=== PATIENT | male | born 1975 | race Caucasian/White ===

== ENCOUNTER 2025-06-03 18:38 | Emergency (ER) | payer OTHER, SELFPAY ==
--- OUTSIDE RECORDS SUMMARY | 2023-04-15 05:15 | XMS_ITS | Continuity of Care Document ---
Author Organization [facility] Address [address] [place] [address] Phone Care Team Providers Care Electromatic Typist Name Role Phone Jamar Hi DMD Unavailable Unavailable Allergies, Adverse Reactions, Alerts Substance Reaction Status Criticality No Known Allergies Active No Inform ation Medications Medication Instructions Dosage Effective Dates (start - stop) Status Comments ibuprofen 800 mg tablet take 1 tablet by oral route 3 times every day with food as needed 800 MG - Active Procedures Procedure Date Intraoral-periapical 1st Film Bitewig-single Film Limited Oral Eval Extract; Erupted Th/exposted R[address] Advance Directives Directive Yes / No Effective Date File Name No Information Encounters Encounter Description Practice Location Reason(s) For Visit Diagnoses Date Provider Providers Copied on Encounter [facility], [address] [place] [address], [id number], tel:[phone] Dental Clinic dental em (chief complaint) Encounter for screening for dental disorders Sussy Roldan. [address], [place], [id number], [place]. tel:[phone] Family History Family Member Type Diagnosis Age At Onset No Information Payers Payer name Insurance type Covered libertarian ID Authorleoa titheresa(s) D [employer] [facility] [id number] D Medicaid [facility] [id number] Social History Type Description Quantity Date Captured Comments Alcohol Use Details Unknown Caffeine Use Details Unknown Tobacco Use Status No Information Smoking Status No Information May-25-2023 Sex Male Sexual Orientation Straight or heterosexual Gender Identity Male Vital Signs Date / Time: Height Weight BMI Pulse Rate Blood Pressure Temperature Respiratory Rate Body Surface Area Head Circumference Head Circ. Percentile Wt./Anders. Percentile BMI percentile Pulse Ox Inhaled Ox 9:50 AM 71 /min 138/92 mm[Hg] 98.00 F Chief Complaint And Reason For Visit From encounter dated '04/15/2023 09:15'. dental em (chief complaint). Description: dental em Reason For Referral Reason For Referral No Information Plan Of Treatment Date Type Action Status Goal Influenza vaccine. Due on due Goal Lipid panel. Due on due Goal PRAPARE ASSESSMENT. Due on due Goal Tdap Vaccine. Due on 2022 due Goal Depression screening. Due on due Goal Tdap. Due on due History Of Present Illness Encounter Date Complaint History Of Prese nt Illness dental em dental em Functional Status Date Functional Assessmen t No Information Instructions Date Instruction Additional Infor mation No Information Assessments Type Assessment Date No Information Patient Care Teams Name Effective Dates (start - stop) Status Members No Information
[2025-06-03 19:02] VITALS: BP 129/82; PULSE 98; TEMP 36.8; O2SAT 98; BMI 29.8
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
--- OUTSIDE RECORDS SUMMARY | 2025-06-03 19:32 | XMS_ITS | Clinical Summary ---
Author Organization [facility] Healthcare Address [address] [place] [address] Care Team Providers Care Salon Supervisor Name Role Phone Unavailable Primary Care Provider Unavailabl e Allergies Active Allergy Reactions Criticality Noted Date Comments Sumatriptan Unknown 04/09/2025 Medications tiZANidine (Zanaflex) 4 MG tablet Take 1 tablet by mouth at bedtime Active tamsulosin (Flomax) 0.4 MG 24 hr capsule Take 1 capsule by mouth Daily Active oxyMORphone ER (Opana) 20 MG 12 hr tablet Take 1 tablet by mouth every 12 (twelve) hours Active metoprolol succinate XL (Toprol-XL) 25 MG 24 hr tablet Take 1 tablet by mouth Daily Active Family History Relation Name Status Comments Daughter x 3 Alive Father Alive Mother Son x 2 Alive Social History Tobacco Use Types Packs/Day Years Used Date Smoking Tobacco: Every Day Cigarettes Tobacco Cessation:Ready to Q uit: Not Asked; Counseling Given: Not Answered Alcohol Use Standard Drinks/Week Comments Yes 0 (1 standard drink = 0.6 oz pur e alcohol) Sex and Gender Information Value Date Recorded Sex Assigned at Not on file Legal Sex Male 6:36 PM EDT Gender Identity Not on file Sexual Orientation Not on file Last Filed Vital Signs Vital Sign Reading Time Taken Comments Blood Pressure 120/78 06/17/2018 12:00 PM EDT Pulse 79 03/01/2018 9:48 AM EDT Temperature - - Respiratory Rate 18 03/01/2018 9:48 AM EDT Oxygen Saturation 94% 03/01/2018 9:48 AM EDT Inhaled Oxygen Concentration - - Weight 81.9 kg (180 lb 9.6 oz) 06/17/2018 12:00 PM EDT Height 188 cm (6' 2 ) 06/17/2018 12:00 PM EDT Body Mass Index 23.19 06/17/2018 12:00 PM EDT Plan of Treatment Not on file
[2025-06-03 19:42] LABS: SARS-CoV-2 Ag NEGATIVE (NEGATIVE)
--- NOTE | 2025-06-03 20:02 | ED.GENADUL1 ---
HPI HPI - General Adult General Chief complaint: Upper Respiratory Infection Stated complaint: NOT FEELING WELL Time Seen by Provider: 06/03/25 19:38 Source: patient Mode of arrival: walk-in Limitations: no limitations History of Present Illness HPI narrative: The patient is a 49-year-old male who presents to the emergency department today for evaluation concerns for cough/cold symptoms. Endorses the symptoms began yesterday and states he took some Tylenol with no relief in symptoms so proceeded to the ER today. Denies any fevers. No headache or ear pain. He does endorse a mild sore throat. No chest pain or shortness of breath. No abdominal pain or nausea/vomiting/diarrhea. Related Data Home Medications ?Medication ?Instructions ?Recorded ?Confirmed No Known Home Medications 06/03/25 06/03/25 Allergies Allergy/AdvReac Type Severity Reaction Status Date / Time sumatriptan (From Imitrex) Allergy Severe Anaphylaxis Verified 06/03/25 19:05 Review of Systems ROS Status of ROS 10 or more systems reviewed and unremarkable except as noted in history and below PFSH PFSH Social History Little interest or pleasure in doing things: not at all Feeling down, depressed, or hopeless: not at all Exam Narrative Exam Narrative: Constituational: Awake/ alert, no apparent distress, well hydrated HENMT: normocephalic, external ears normal, + nasal congestion and clear nasal drainage, moist oral mucous membranes and oropharynx normal Eyes: EOMI and conjunctivae normal Neck: ROM intact Chest: inspection of chest normal Respiratory: Normal respiratory effort, clear to auscultation bilaterally Cardio: regular rate and regular rhythm GI: soft to palpation and non-tender Back: nontender MSK: ROM intact, +NVI Skin: no rashes or petechiae Neuro: no focal deficits Psych: mental status grossly normal Constitutional Vital Signs, click to edit/add: Last Vital Signs Temp 98.2 F 06/03/25 19:02 Pulse 98 H 06/03/25 19:02 Resp 16 06/03/25 19:02 BP 129/82 06/03/25 19:02 Pulse Ox 98 06/03/25 19:02 O2 Del Method Room Air 06/03/25 19:02 Course Vital Signs Vital signs: Vital Signs Temperature 98.2 F 06/03/25 19:02 Pulse Rate 98 H 06/03/25 19:02 Respiratory Rate 16 06/03/25 19:02 Blood Pressure 129/82 06/03/25 19:02 Pulse Oximetry 98 06/03/25 19:02 Oxygen Delivery Method Room Air 06/03/25 19:02 Temperature 98.2 F 06/03/25 19:02 Pulse Rate 98 H 06/03/25 19:02 Respiratory Rate 16 06/03/25 19:02 Blood Pressure 129/82 06/03/25 19:02 Pulse Oximetry 98 06/03/25 19:02 Oxygen Delivery Method Room Air 06/03/25 19:02 Medical Decision Making MDM Narrative Medical decision making narrative: The patient is a nontoxic-appearing 49-year-old male who presented to the emergency department today for evaluation concerns for cold symptoms including congestion and rhinorrhea. Initial examination patient with clinical evidence consistent with URI as evidenced by the above complaints. Vital signs stable. He is not in any respiratory distress. Viral testing is negative for influenza and COVID. Rapid strep negative. He does not appear to be exhibiting any ischemic symptoms and does appear euvolemic on exam. Discussed this with the patient including recommendations for supportive care of URI, likely viral etiology. Advised on follow-up with patient's primary care provider for reevaluation. Discussed signs and symptoms of any worsening condition and when to consider reevaluation by the emergency department. Patient verbalized an understanding of this and is agreeable with the plan to be discharged home. Medical Records Medical records reviewed: Yes I reviewed the patient's medical records Lab Data Lab results reviewed: Yes I reviewed the patient's lab results Labs: Lab Results 06/03/25 Range/Units 19:10 Influenza Type A Ag Negative Influenza Type B Ag Negative SARS-CoV-2 Ag (CV2AG) Negative (NEGATIVE) Streptococcus Screen Negative Discharge Plan Discharge Chief Complaint: Upper Respiratory Infection Clinical Impression: Upper respiratory infection Patient Disposition: Home, Self-Care Prescriptions / Home Meds: No Action No Known Home Medications Print Language: Czech Instructions: Upper Respiratory Infection (DC) Additional Instructions: May take Tylenol and ibuprofen for any pain or fevers if this occurs. Recommend using hjoj-ndd-fgsadzm nasal decongestants like Sudafed or Afrin to help with congestion. For your sore throat may use throat lozenges or Cepacol and gargle salt water. Follow-up with your primary care provider for reevaluation as discussed. Referrals: Physician,Non-Staff, MD [Primary Care Provider] - 1 week
== END 2025-06-03 20:12 | disposition home or self-care (01) ==
PROVIDERS: Emergency Provider Emergency Medicine
DX: J06.9 Acute upper respiratory infection, unspecified (principal)
CPT/HCPCS: 87070; 87804; 87811; 87880; 99283

== ENCOUNTER 2025-10-23 13:37 | Emergency (ER) | payer OTHER, SELFPAY ==
[2025-10-23 13:41] VITALS: BP 154/83; PULSE 92; TEMP 36.6; O2SAT 96; BMI 33.0
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
--- OUTSIDE RECORDS SUMMARY | 2025-10-23 13:55 | XMS_ITS | Clinical Summary ---
Author Organization [facility] Healthcare Address [address] [place] [address] Care Team Providers Care Plaster Lather Name Role Phone Unavailable Primary Care Provider Unavailabl e Allergies Active AllergyReactionsCriticalityNoted WetnHzpmvckhDeqfskujxehJwhlfss40/19/2025 Medications MedicationSigDispense QuantityRefillsLast FilledStart DateEnd DateStatus tiZANidine (Zanaflex) 4 MG tablet Take 1 tablet by mouth at bedtimeActive tamsulosin (Flomax) 0.4 MG 24 hr capsule Take 1 capsule by mouth DailyActive oxyMORphone ER (Opana) 20 MG 12 hr tablet Take 1 tablet by mouth every 12 (twelve) hoursActive metoprolol succinate XL (Toprol-XL) 25 MG 24 hr tablet Take 1 tablet by mouth DailyActive Family History RelationNameStatusCommentsDaughterx 3AliveFatherAliveMotherDeceasedSonx 2Alive Social History Tobacco UseTypesPacks/DayYears UsedDateSmoking Tobacco: Every DayCigarettes Tobacco Cessation:Ready to Q uit: Not Asked; Counseling Given: Not Answered Alcohol UseStandard Drinks/WeekCommentsYes0 (1 standard drink = 0.6 oz pure alcohol)Sex and Gender InformationValueDate RecordedSex Assigned at BirthNot on fileLegal IrzWxhn4202/03/2023 6:36 PM EDTGender IdentityNot on fileSexual OrientationNot on file Last Filed Vital Signs Vital SignReadingTime TakenCommentsBlood Fadjzrlt560/7807 12:00 PM EDT Ktlxo5471 9:48 AM EDTTemperature--Respiratory Gxlc6799 9:48 AM EDTOxygen Upfhekkrmz89%03/01/2018 9:48 AM EDTInhaled Oxygen Concentration-- Hdssno80.9 kg (180 lb 9.6 oz)06/17/2018 12:00 PM QVPKmjefw397 cm (6' 2 ) 06/17/2018 12:00 PM EDTBody Mass Index23.19006/17/2018 12:00 PM EDT Plan of Treatment Not on file
== END 2025-10-23 14:06 | disposition home or self-care (01) ==
PROVIDERS: Emergency Provider Emergency Medicine
DX: H66.90 Otitis media, unspecified, unspecified ear (principal)
CPT/HCPCS: 99283